=== PATIENT | male | born 2000 | race Caucasian/White ===

== ENCOUNTER 2023-11-18 09:44 | Outpatient (CLI) | payer OTHER, SELFPAY | END 2023-11-18 09:45 | disposition home or self-care (01) | PROVIDERS: Visit Provider Physician Assistant | DX: Z20.828 Contact with and (suspected) exposure to other viral communicable diseases (principal); R50.9 Fever, unspecified; J02.9 Acute pharyngitis, unspecified; R21 Rash and other nonspecific skin eruption; R51.9 Headache, unspecified; M79.18 Myalgia, other site; M25.59 Pain in other specified joint | CPT/HCPCS: 86618; 87468; 87469; 87484; 87798 ==